=== PATIENT | male | born 1980 ===

== ENCOUNTER 2018-02-18 22:29 | Emergency (ER) | payer OTHER ==
[2018-02-18 22:47] VITALS: O2SAT 97
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
[2018-02-18] MEDS ORDERED: Nitroglycerin 2% Ointment Foilpak UD TOP ONE (23:42)
[2018-02-18] MEDS ORDERED: Morphine 4 MG/ML VIAL ONE (23:43)
--- NOTE | 2018-02-19 00:10 | CT ---
EXAM: CT Head Without Intravenous Contrast EXAM DATE/TIME: 02/18/2018 10:50 PM CLINICAL HISTORY: 37 years old, male; Pain; Headache; Additional info: R/O bleed TECHNIQUE: Axial computed tomography images of the head/brain without intravenous contrast. All CT scans at this facility use one or more dose reduction techniques, viz.: automated exposure control; ma/kV adjustment per patient size (including targeted exams where dose is matched to indication; i.e. head); or iterative reconstruction technique. COMPARISON: There are no prior studies for comparison. FINDINGS: Brain and ventricles: Ventricles are normal in size and configuration. There is no midline shift. There are no intra-axial or extra-axial mass lesions or areas of hemorrhage. There are no abnormal fluid collections. Bejarano-white differentiation is maintained. Bones: Cranial vault is intact. Soft tissues: unremarkable Sinuses: There is no acute sinusitis. Ears and mastoids: Middle ears and mastoids are unremarkable Orbits: Orbital contents are unremarkable. IMPRESSION: No acute intracranial abnormality
[2018-02-19 00:26] VITALS: BP 120/78; PULSE 80; RESP 14; TEMP 98.5
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
--- NOTE | 2018-02-19 08:32 | RAD ---
Chest x-ray two views History: Shortness of breath. Comparison: None available. Findings: No focal infiltrate or effusion. Heart size within normal limits. Impression: No focal infiltrate or effusion.
== END 2018-02-19 00:26 | disposition home or self-care (01) ==
LOC: C.ER 22:29
DX: T14.8XXA Other injury of unspecified body region, initial encounter (principal); V89.2XXA Person injured in unspecified motor-vehicle accident, traffic, initial encounter